=== PATIENT | female | born 1935 | race Caucasian/White ===

== ENCOUNTER 2022-12-04 10:14 | Inpatient (IN) | payer MEDICARE, BC ==
[2022-12-04] MEDS ORDERED: Acetaminophen 325 MG Tab PO PRN (15:57)
[2022-12-04] MEDS ORDERED: Ondansetron 4 MG Tab.DIS PO PRN (15:57)
[2022-12-04] MEDS ORDERED: Polyethylene Glycol 3350 Powder 17 GM Packet PO PRN (15:57)
[2022-12-04] MEDS ORDERED: Fluticasone NASAL Spray 16 GM Bottle NAS PRN (16:02)
[2022-12-04] MEDS: Magnesium Oxide 400 MG Tab PO SCH (19:52)
[2022-12-04] MEDS: Ciprofloxacin 500 MG Tab PO SCH (20:10)
[2022-12-04] MEDS: Donepezil 10 MG Tab PO SCH (20:10)
[2022-12-04] MEDS: Apixaban 5 MG Tab PO SCH (20:11)
[2022-12-04] MEDS: Nystatin Topical Powder 15 GM Bottle TOP SCH (20:11)
[2022-12-05] MEDS: Furosemide 40 MG Tab PO SCH (08:51)
[2022-12-05] MEDS: Magnesium Oxide 400 MG Tab PO SCH ×2 (08:51→18:56)
[2022-12-05] MEDS: Apixaban 5 MG Tab PO SCH ×2 (08:51→20:01)
[2022-12-05] MEDS: Nystatin Topical Powder 15 GM Bottle TOP SCH ×3 (08:51→20:00)
[2022-12-05] MEDS: Tamsulosin 0.4 MG Cap.ER PO SCH (08:51)
[2022-12-05] MEDS: Mirabegron 25 MG Tab Extended Release PO SCH (08:51)
[2022-12-05] MEDS: Ciprofloxacin 500 MG Tab PO SCH ×2 (08:51→20:01)
[2022-12-05] MEDS: Lisinopril 5 MG Tab PO SCH (08:52)
[2022-12-05] MEDS: Metoprolol Succinate 50 MG Tab.ER PO SCH (08:53)
[2022-12-05] MEDS: Cholecalciferol (Vitamin D3) 25 MCG Tab PO SCH (08:53)
[2022-12-05] MEDS: Sertraline 50 MG Tab PO SCH (08:53)
[2022-12-05] MEDS: Sertraline 100 MG Tab PO SCH (08:53)
[2022-12-05] MEDS: Donepezil 10 MG Tab PO SCH (20:01)
[2022-12-06] MEDS: Magnesium Oxide 400 MG Tab PO SCH ×2 (08:22→18:10)
[2022-12-06] MEDS: Furosemide 40 MG Tab PO SCH (09:47)
[2022-12-06] MEDS: Ciprofloxacin 500 MG Tab PO SCH ×2 (09:47→20:08)
[2022-12-06] MEDS: Mirabegron 25 MG Tab Extended Release PO SCH (09:47)
[2022-12-06] MEDS: Apixaban 5 MG Tab PO SCH ×2 (09:47→20:09)
[2022-12-06] MEDS: Tamsulosin 0.4 MG Cap.ER PO SCH (09:47)
[2022-12-06] MEDS: Sertraline 100 MG Tab PO SCH (09:48)
[2022-12-06] MEDS: Nystatin Topical Powder 15 GM Bottle TOP SCH ×3 (09:48→20:08)
[2022-12-06] MEDS: Sertraline 50 MG Tab PO SCH (09:48)
[2022-12-06] MEDS: Cholecalciferol (Vitamin D3) 25 MCG Tab PO SCH (09:49)
[2022-12-06] MEDS: Metoprolol Succinate 50 MG Tab.ER PO SCH (09:57)
[2022-12-06] MEDS: Lisinopril 5 MG Tab PO SCH (09:57)
[2022-12-06] MEDS: Donepezil 10 MG Tab PO SCH (20:08)
[2022-12-07] MEDS: Magnesium Oxide 400 MG Tab PO SCH ×2 (08:29→17:28)
[2022-12-07] MEDS: Cholecalciferol (Vitamin D3) 25 MCG Tab PO SCH (08:29)
[2022-12-07] MEDS: Metoprolol Succinate 50 MG Tab.ER PO SCH (08:29)
[2022-12-07] MEDS: Mirabegron 25 MG Tab Extended Release PO SCH (08:29)
[2022-12-07] MEDS: Tamsulosin 0.4 MG Cap.ER PO SCH (08:30)
[2022-12-07] MEDS: Ciprofloxacin 500 MG Tab PO SCH ×2 (08:30→20:38)
[2022-12-07] MEDS: Sertraline 50 MG Tab PO SCH (08:30)
[2022-12-07] MEDS: Sertraline 100 MG Tab PO SCH (08:30)
[2022-12-07] MEDS: Furosemide 40 MG Tab PO SCH (08:30)
[2022-12-07] MEDS: Lisinopril 5 MG Tab PO SCH (08:30)
[2022-12-07] MEDS: Nystatin Topical Powder 15 GM Bottle TOP SCH ×3 (08:30→20:40)
[2022-12-07] MEDS: Apixaban 5 MG Tab PO SCH ×2 (08:30→20:37)
[2022-12-07] MEDS: Donepezil 10 MG Tab PO SCH (20:37)
[2022-12-08] MEDS: Magnesium Oxide 400 MG Tab PO SCH ×2 (08:47→17:50)
[2022-12-08] MEDS: Nystatin Topical Powder 15 GM Bottle TOP SCH ×3 (08:47→20:44)
[2022-12-08] MEDS: Apixaban 5 MG Tab PO SCH ×2 (08:57→20:27)
[2022-12-08] MEDS: Ciprofloxacin 500 MG Tab PO SCH ×2 (08:57→20:26)
[2022-12-08] MEDS: Cholecalciferol (Vitamin D3) 25 MCG Tab PO SCH (08:58)
[2022-12-08] MEDS: Furosemide 40 MG Tab PO SCH (08:58)
[2022-12-08] MEDS: Tamsulosin 0.4 MG Cap.ER PO SCH (08:58)
[2022-12-08] MEDS: Mirabegron 25 MG Tab Extended Release PO SCH (08:58)
[2022-12-08] MEDS: Sertraline 100 MG Tab PO SCH (08:59)
[2022-12-08] MEDS: Sertraline 50 MG Tab PO SCH (08:59)
[2022-12-08] MEDS: Lisinopril 5 MG Tab PO SCH (09:04)
[2022-12-08] MEDS: Metoprolol Succinate 50 MG Tab.ER PO SCH (09:04)
[2022-12-08] MEDS: Donepezil 10 MG Tab PO SCH (20:26)
[2022-12-09] MEDS: Ciprofloxacin 500 MG Tab PO SCH ×2 (08:32→20:58)
[2022-12-09] MEDS: Tamsulosin 0.4 MG Cap.ER PO SCH (08:32)
[2022-12-09] MEDS: Magnesium Oxide 400 MG Tab PO SCH ×2 (08:32→17:59)
[2022-12-09] MEDS: Apixaban 5 MG Tab PO SCH ×2 (08:32→20:59)
[2022-12-09] MEDS: Furosemide 40 MG Tab PO SCH (08:33)
[2022-12-09] MEDS: Nystatin Topical Powder 15 GM Bottle TOP SCH ×3 (08:33→20:59)
[2022-12-09] MEDS: Mirabegron 25 MG Tab Extended Release PO SCH (08:33)
[2022-12-09] MEDS: Cholecalciferol (Vitamin D3) 25 MCG Tab PO SCH (08:36)
[2022-12-09] MEDS: Sertraline 100 MG Tab PO SCH (08:37)
[2022-12-09] MEDS: Sertraline 50 MG Tab PO SCH (08:37)
[2022-12-09] MEDS: Metoprolol Succinate 50 MG Tab.ER PO SCH (08:38)
[2022-12-09] MEDS: Lisinopril 5 MG Tab PO SCH (08:38)
[2022-12-09] MEDS: Donepezil 10 MG Tab PO SCH (20:58)
[2022-12-10] MEDS: Apixaban 5 MG Tab PO SCH ×2 (08:27→20:44)
[2022-12-10] MEDS: Tamsulosin 0.4 MG Cap.ER PO SCH (08:27)
[2022-12-10] MEDS: Sertraline 100 MG Tab PO SCH (08:27)
[2022-12-10] MEDS: Ciprofloxacin 500 MG Tab PO SCH ×2 (08:27→20:43)
[2022-12-10] MEDS: Magnesium Oxide 400 MG Tab PO SCH ×2 (08:27→17:57)
[2022-12-10] MEDS: Sertraline 50 MG Tab PO SCH (08:27)
[2022-12-10] MEDS: Metoprolol Succinate 50 MG Tab.ER PO SCH (08:28)
[2022-12-10] MEDS: Cholecalciferol (Vitamin D3) 25 MCG Tab PO SCH (08:28)
[2022-12-10] MEDS: Lisinopril 5 MG Tab PO SCH (08:28)
[2022-12-10] MEDS: Mirabegron 25 MG Tab Extended Release PO SCH (08:29)
[2022-12-10] MEDS: Furosemide 40 MG Tab PO SCH (08:29)
[2022-12-10] MEDS: Nystatin Topical Powder 15 GM Bottle TOP SCH ×3 (08:32→20:44)
[2022-12-10] MEDS: Donepezil 10 MG Tab PO SCH (20:43)
[2022-12-11] MEDS: Tamsulosin 0.4 MG Cap.ER PO SCH (08:36)
[2022-12-11] MEDS: Ciprofloxacin 500 MG Tab PO SCH ×2 (08:36→21:44)
[2022-12-11] MEDS: Magnesium Oxide 400 MG Tab PO SCH ×2 (08:36→17:47)
[2022-12-11] MEDS: Apixaban 5 MG Tab PO SCH ×2 (08:36→21:44)
[2022-12-11] MEDS: Furosemide 40 MG Tab PO SCH (08:36)
[2022-12-11] MEDS: Mirabegron 25 MG Tab Extended Release PO SCH (08:37)
[2022-12-11] MEDS: Nystatin Topical Powder 15 GM Bottle TOP SCH ×3 (08:37→21:44)
[2022-12-11] MEDS: Lisinopril 5 MG Tab PO SCH (08:37)
[2022-12-11] MEDS: Metoprolol Succinate 50 MG Tab.ER PO SCH (08:37)
[2022-12-11] MEDS: Sertraline 100 MG Tab PO SCH (08:38)
[2022-12-11] MEDS: Sertraline 50 MG Tab PO SCH (08:38)
[2022-12-11] MEDS: Cholecalciferol (Vitamin D3) 25 MCG Tab PO SCH (08:38)
[2022-12-11] MEDS ORDERED: Pneumococcal Polyvalent-23 Vaccine 0.5 ML SDV IM ONE (11:15)
[2022-12-11] MEDS: Donepezil 10 MG Tab PO SCH (21:44)
[2022-12-12] MEDS: Ciprofloxacin 500 MG Tab PO SCH ×2 (08:23→21:06)
[2022-12-12] MEDS: Magnesium Oxide 400 MG Tab PO SCH ×2 (08:23→17:06)
[2022-12-12] MEDS: Mirabegron 25 MG Tab Extended Release PO SCH (08:24)
[2022-12-12] MEDS: Cholecalciferol (Vitamin D3) 25 MCG Tab PO SCH (08:24)
[2022-12-12] MEDS: Furosemide 40 MG Tab PO SCH (08:24)
[2022-12-12] MEDS: Apixaban 5 MG Tab PO SCH ×2 (08:24→21:10)
[2022-12-12] MEDS: Nystatin Topical Powder 15 GM Bottle TOP SCH ×3 (08:24→21:10)
[2022-12-12] MEDS: Metoprolol Succinate 50 MG Tab.ER PO SCH (08:25)
[2022-12-12] MEDS: Lisinopril 5 MG Tab PO SCH (08:25)
[2022-12-12] MEDS: Sertraline 50 MG Tab PO SCH (08:26)
[2022-12-12] MEDS: Sertraline 100 MG Tab PO SCH (08:26)
[2022-12-12] MEDS: Tamsulosin 0.4 MG Cap.ER PO SCH (08:28)
[2022-12-12] MEDS: Donepezil 10 MG Tab PO SCH (21:06)
[2022-12-13] MEDS: Mirabegron 25 MG Tab Extended Release PO SCH (08:21)
[2022-12-13] MEDS: Magnesium Oxide 400 MG Tab PO SCH ×2 (08:21→17:01)
[2022-12-13] MEDS: Furosemide 40 MG Tab PO SCH (08:21)
[2022-12-13] MEDS: Tamsulosin 0.4 MG Cap.ER PO SCH (08:22)
[2022-12-13] MEDS: Sertraline 100 MG Tab PO SCH (08:22)
[2022-12-13] MEDS: Ciprofloxacin 500 MG Tab PO SCH ×2 (08:22→21:24)
[2022-12-13] MEDS: Cholecalciferol (Vitamin D3) 25 MCG Tab PO SCH (08:22)
[2022-12-13] MEDS: Apixaban 5 MG Tab PO SCH ×2 (08:22→21:25)
[2022-12-13] MEDS: Sertraline 50 MG Tab PO SCH (08:22)
[2022-12-13] MEDS: Nystatin Topical Powder 15 GM Bottle TOP SCH ×3 (08:24→21:25)
[2022-12-13] MEDS: Metoprolol Succinate 50 MG Tab.ER PO SCH (08:25)
[2022-12-13] MEDS: Lisinopril 5 MG Tab PO SCH (08:26)
[2022-12-13] MEDS ORDERED: valACYclovir 1,000 MG Tab PO SCH (09:00)
[2022-12-13 10:24] LABS: EST CRCL DRUG DOSING (CG) 38.5 mL/min
[2022-12-13] MEDS: valACYclovir 1,000 MG Tab PO SCH ×2 (13:07→21:26)
[2022-12-13] MEDS: Donepezil 10 MG Tab PO SCH (21:24)
[2022-12-14] MEDS: Magnesium Oxide 400 MG Tab PO SCH ×2 (08:41→19:24)
[2022-12-14] MEDS: Apixaban 5 MG Tab PO SCH ×2 (08:41→20:10)
[2022-12-14] MEDS: Ciprofloxacin 500 MG Tab PO SCH ×2 (08:41→20:10)
[2022-12-14] MEDS: Tamsulosin 0.4 MG Cap.ER PO SCH (08:42)
[2022-12-14] MEDS: Furosemide 40 MG Tab PO SCH (08:42)
[2022-12-14] MEDS: Mirabegron 25 MG Tab Extended Release PO SCH (08:43)
[2022-12-14] MEDS: Cholecalciferol (Vitamin D3) 25 MCG Tab PO SCH (08:44)
[2022-12-14] MEDS: Sertraline 100 MG Tab PO SCH (08:45)
[2022-12-14] MEDS: Sertraline 50 MG Tab PO SCH (08:45)
[2022-12-14] MEDS: Metoprolol Succinate 50 MG Tab.ER PO SCH (08:46)
[2022-12-14] MEDS: Lisinopril 5 MG Tab PO SCH (08:46)
[2022-12-14] MEDS: Nystatin Topical Powder 15 GM Bottle TOP SCH (09:52)
[2022-12-14] MEDS: valACYclovir 1,000 MG Tab PO SCH (09:52)
[2022-12-14] MEDS: Donepezil 10 MG Tab PO SCH (20:10)
[2022-12-15] MEDS: Magnesium Oxide 400 MG Tab PO SCH ×2 (09:04→17:40)
[2022-12-15] MEDS: Ciprofloxacin 500 MG Tab PO SCH ×2 (09:04→20:00)
[2022-12-15] MEDS: Sertraline 50 MG Tab PO SCH (09:04)
[2022-12-15] MEDS: Apixaban 5 MG Tab PO SCH ×2 (09:04→20:00)
[2022-12-15] MEDS: Tamsulosin 0.4 MG Cap.ER PO SCH (09:04)
[2022-12-15] MEDS: Cholecalciferol (Vitamin D3) 25 MCG Tab PO SCH (09:04)
[2022-12-15] MEDS: Mirabegron 25 MG Tab Extended Release PO SCH (09:04)
[2022-12-15] MEDS: Sertraline 100 MG Tab PO SCH (09:04)
[2022-12-15] MEDS: Furosemide 40 MG Tab PO SCH (09:04)
[2022-12-15] MEDS: Metoprolol Succinate 50 MG Tab.ER PO SCH (09:07)
[2022-12-15] MEDS: Lisinopril 5 MG Tab PO SCH (09:07)
[2022-12-15 10:50] LABS: BASOPHILS PERCENT AUTO 0.6 % (0.2-1.5); EOSINOPHILS ABSOLUTE AUTO 0.5 x10-3/uL (0.0-0.8); EOSINOPHILS PERCENT AUTO 7.2 % (0.6-8.1); HEMATOCRIT 28.7 % (34.2-48.2); HEMOGLOBIN 9.2 g/dL (11.4-15.5); LYMPHOCYTES ABSOLUTE AUTO 0.9 x10-3/uL (1.0-4.4); LYMPHOCYTES PERCENT AUTO 13.2 % (18.4-52.1); MEAN CORPUSCULAR HEMOGLOBIN 27.2 pg (23.9-33.9); MEAN CORPUSCULAR HGB CONC 31.9 g/dL (31.9-34.8); MEAN CORPUSCULAR VOLUME 85.2 fL (76.7-100.5); MEAN PLATELET VOLUME 7.7 fL (7.1-12.4); MONOCYTES ABSOLUTE AUTO 0.4 x10-3/uL (0.3-1.0); MONOCYTES PERCENT AUTO 5.7 % (4.4-15.7); NEUTROPHILS ABSOLUTE AUTO 4.8 x10-3/uL (1.5-6.3); NEUTROPHILS PERCENT AUTO 73.3 % (30.8-76.2); PLATELET COUNT,PLT 318 x10(3)uL (151-488); RED BLOOD CELL COUNT 3.37 x10(6)uL (3.60-5.20); RED CELL DISTRIBUTION WIDTH 15.2 % (12.3-16.5); WHITE BLOOD CELL COUNT,WBC 6.6 x10-3/uL (3.0-10.3)
[2022-12-15 10:52] LABS: BLOOD UREA NITROGEN,BUN 14 mg/dL (7-18); BUN/CREATININE RATIO 12.7 (9-20); CALCIUM 9.4 mg/dL (8.6-10.2); CARBON DIOXIDE,CO2 33 mmol/L (21-32); CHLORIDE,CL 103 mmol/L (100-110); CREATININE 1.1 mg/dL (0.55-1.02); ESTIMATED GFR 49 mL/min (>60); GLUCOSE RANDOM 112 mg/dL (80-116); POTASSIUM,K 3.7 mmol/L (3.5-5.3); SODIUM,NA 143 mmol/L (135-145)
[2022-12-15 10:58] LABS: A/G RATIO 0.5; ALANINE AMINOTRANSFERASE,ALT 29 U/L (12-36); ALBUMIN 2.5 g/dL (3.2-4.6); ALKALINE PHOSPHATASE 134 IU/L (56-112); ASPARTATE AMNIOTRANSFERASE,AST 23 IU/L (5-25); BILIRUBIN TOTAL 0.3 mg/dL (0.1-1.3); PROTEIN TOTAL,TP 7.2 g/dL (6.0-8.0)
[2022-12-15 14:56] LABS: APPEARANCE,URINE SLIGHTLY CLOUDY (CLEAR); BACTERIA,URINE MODERATE (NS); BILIRUBIN,URINE NEGATIVE (NEGATIVE); COLOR,URINE RED (YELLOW); GLUCOSE,URINE NORMAL (NORMAL); KETONES,URINE NEGATIVE (NEGATIVE); LEUKOCYTE ESTERASE,URINE LARGE (NEGATIVE); NITRITE,URINE NEGATIVE (NEGATIVE); OCCULT BLOOD,URINE LARGE (NEGATIVE); PROTEIN,URINE 30 mg/dL (NEGATIVE); RBC,URINE >100 (0-5); SQUAMOUS EPITHELIAL CELLS,UR RARE (NS,R,O); UROBILINOGEN,URINE NORMAL (NEGATIVE); WBC,URINE >100 (0-5)
[2022-12-15] MEDS ORDERED: Ciprofloxacin 500 MG Tab PO SCH (17:00)
[2022-12-15] MEDS: Donepezil 10 MG Tab PO SCH (20:00)
[2022-12-16] MEDS: Magnesium Oxide 400 MG Tab PO SCH ×2 (08:47→18:54)
[2022-12-16] MEDS: Tamsulosin 0.4 MG Cap.ER PO SCH (08:48)
[2022-12-16] MEDS: Ciprofloxacin 500 MG Tab PO SCH ×2 (08:48→20:53)
[2022-12-16] MEDS: Sertraline 50 MG Tab PO SCH (08:49)
[2022-12-16] MEDS: Sertraline 100 MG Tab PO SCH (08:49)
[2022-12-16] MEDS: Cholecalciferol (Vitamin D3) 25 MCG Tab PO SCH (08:50)
[2022-12-16] MEDS: Furosemide 40 MG Tab PO SCH (08:50)
[2022-12-16] MEDS: Mirabegron 25 MG Tab Extended Release PO SCH (08:51)
[2022-12-16] MEDS: Apixaban 5 MG Tab PO SCH ×2 (09:11→20:53)
[2022-12-16] MEDS: Lisinopril 5 MG Tab PO SCH (09:17)
[2022-12-16] MEDS: Metoprolol Succinate 50 MG Tab.ER PO SCH (09:17)
[2022-12-16] MEDS: Donepezil 10 MG Tab PO SCH (20:53)
[2022-12-17 06:32] LABS: BASOPHILS PERCENT AUTO 0.4 % (0.2-1.5); EOSINOPHILS ABSOLUTE AUTO 0.4 x10-3/uL (0.0-0.8); HEMATOCRIT 24.3 % (34.2-48.2); HEMOGLOBIN 7.8 g/dL (11.4-15.5); LYMPHOCYTES ABSOLUTE AUTO 0.8 x10-3/uL (1.0-4.4); LYMPHOCYTES PERCENT AUTO 14.8 % (18.4-52.1); MEAN CORPUSCULAR HEMOGLOBIN 27.3 pg (23.9-33.9); MEAN CORPUSCULAR VOLUME 85.2 fL (76.7-100.5); MEAN PLATELET VOLUME 7.6 fL (7.1-12.4); MONOCYTES ABSOLUTE AUTO 0.4 x10-3/uL (0.3-1.0); MONOCYTES PERCENT AUTO 6.5 % (4.4-15.7); NEUTROPHILS ABSOLUTE AUTO 3.8 x10-3/uL (1.5-6.3); NEUTROPHILS PERCENT AUTO 70.3 % (30.8-76.2); PLATELET COUNT,PLT 234 x10(3)uL (151-488); RED BLOOD CELL COUNT 2.85 x10(6)uL (3.60-5.20); RED CELL DISTRIBUTION WIDTH 15.1 % (12.3-16.5); WHITE BLOOD CELL COUNT,WBC 5.4 x10-3/uL (3.0-10.3)
[2022-12-17 06:38] LABS: BLOOD UREA NITROGEN,BUN 16 mg/dL (7-18); CALCIUM 8.7 mg/dL (8.6-10.2); CARBON DIOXIDE,CO2 31 mmol/L (21-32); CHLORIDE,CL 105 mmol/L (100-110); ESTIMATED GFR 55 mL/min (>60); GLUCOSE RANDOM 92 mg/dL (80-116); POTASSIUM,K 3.5 mmol/L (3.5-5.3); SODIUM,NA 142 mmol/L (135-145)
[2022-12-17] MEDS: Apixaban 5 MG Tab PO SCH (08:32)
[2022-12-17] MEDS: Magnesium Oxide 400 MG Tab PO SCH ×2 (08:45→17:53)
[2022-12-17] MEDS: Cholecalciferol (Vitamin D3) 25 MCG Tab PO SCH (08:46)
[2022-12-17] MEDS: Tamsulosin 0.4 MG Cap.ER PO SCH (08:46)
[2022-12-17] MEDS: Furosemide 40 MG Tab PO SCH (08:46)
[2022-12-17] MEDS: Mirabegron 25 MG Tab Extended Release PO SCH (08:46)
[2022-12-17] MEDS: Ciprofloxacin 500 MG Tab PO SCH ×2 (08:46→20:16)
[2022-12-17] MEDS: Sertraline 50 MG Tab PO SCH (08:47)
[2022-12-17] MEDS: Sertraline 100 MG Tab PO SCH (08:47)
[2022-12-17] MEDS: Metoprolol Succinate 50 MG Tab.ER PO SCH (08:57)
[2022-12-17] MEDS: Lisinopril 5 MG Tab PO SCH (08:57)
[2022-12-17] MEDS: Donepezil 10 MG Tab PO SCH (20:16)
[2022-12-18 06:13] LABS: BASOPHILS PERCENT AUTO 0.5 % (0.2-1.5); EOSINOPHILS ABSOLUTE AUTO 0.5 x10-3/uL (0.0-0.8); EOSINOPHILS PERCENT AUTO 8.3 % (0.6-8.1); HEMATOCRIT 23.5 % (34.2-48.2); HEMOGLOBIN 7.6 g/dL (11.4-15.5); LYMPHOCYTES ABSOLUTE AUTO 0.8 x10-3/uL (1.0-4.4); MEAN CORPUSCULAR HEMOGLOBIN 27.3 pg (23.9-33.9); MEAN CORPUSCULAR HGB CONC 32.5 g/dL (31.9-34.8); MEAN CORPUSCULAR VOLUME 84.1 fL (76.7-100.5); MEAN PLATELET VOLUME 7.3 fL (7.1-12.4); MONOCYTES ABSOLUTE AUTO 0.4 x10-3/uL (0.3-1.0); MONOCYTES PERCENT AUTO 7.3 % (4.4-15.7); NEUTROPHILS ABSOLUTE AUTO 4.1 x10-3/uL (1.5-6.3); NEUTROPHILS PERCENT AUTO 69.9 % (30.8-76.2); PLATELET COUNT,PLT 228 x10(3)uL (151-488); RED BLOOD CELL COUNT 2.79 x10(6)uL (3.60-5.20); WHITE BLOOD CELL COUNT,WBC 5.9 x10-3/uL (3.0-10.3)
[2022-12-18 06:20] LABS: BLOOD UREA NITROGEN,BUN 18 mg/dL (7-18); BUN/CREATININE RATIO 16.4 (9-20); CALCIUM 8.7 mg/dL (8.6-10.2); CARBON DIOXIDE,CO2 31 mmol/L (21-32); CHLORIDE,CL 105 mmol/L (100-110); CREATININE 1.1 mg/dL (0.55-1.02); ESTIMATED GFR 49 mL/min (>60); GLUCOSE RANDOM 92 mg/dL (80-116); POTASSIUM,K 3.7 mmol/L (3.5-5.3); SODIUM,NA 142 mmol/L (135-145)
[2022-12-18] MEDS ORDERED: Sodium Chloride 0.9% 250 ML IV SCH (08:30)
[2022-12-18] MEDS ORDERED: Fluconazole 100 MG Tab PO SCH (09:00)
[2022-12-18] MEDS: Apixaban 5 MG Tab PO SCH (09:15)
[2022-12-18] MEDS: Tamsulosin 0.4 MG Cap.ER PO SCH (09:16)
[2022-12-18] MEDS: Ciprofloxacin 500 MG Tab PO SCH (09:16)
[2022-12-18] MEDS: Furosemide 40 MG Tab PO SCH (09:17)
[2022-12-18] MEDS: Mirabegron 25 MG Tab Extended Release PO SCH (09:17)
[2022-12-18] MEDS: Cholecalciferol (Vitamin D3) 25 MCG Tab PO SCH (09:17)
[2022-12-18] MEDS: Sertraline 50 MG Tab PO SCH (09:18)
[2022-12-18] MEDS: Sertraline 100 MG Tab PO SCH (09:18)
[2022-12-18] MEDS: Metoprolol Succinate 50 MG Tab.ER PO SCH (09:19)
[2022-12-18] MEDS: Magnesium Oxide 400 MG Tab PO SCH ×3 (09:20→17:28)
[2022-12-18] MEDS: Lisinopril 5 MG Tab PO SCH (09:20)
[2022-12-18] MEDS: Donepezil 10 MG Tab PO SCH (21:07)
[2022-12-19] MEDS: Cholecalciferol (Vitamin D3) 25 MCG Tab PO SCH (08:28)
[2022-12-19] MEDS: Mirabegron 25 MG Tab Extended Release PO SCH (08:28)
[2022-12-19] MEDS: Metoprolol Succinate 50 MG Tab.ER PO SCH (08:28)
[2022-12-19] MEDS: Magnesium Oxide 400 MG Tab PO SCH ×2 (08:28→17:38)
[2022-12-19] MEDS: Sertraline 100 MG Tab PO SCH (08:29)
[2022-12-19] MEDS: Sertraline 50 MG Tab PO SCH (08:29)
[2022-12-19] MEDS: Lisinopril 5 MG Tab PO SCH (08:29)
[2022-12-19] MEDS: Tamsulosin 0.4 MG Cap.ER PO SCH (08:29)
[2022-12-19] MEDS: Apixaban 5 MG Tab PO SCH ×2 (08:29→20:29)
[2022-12-19] MEDS: Furosemide 40 MG Tab PO SCH (08:30)
[2022-12-19] MEDS: Donepezil 10 MG Tab PO SCH (20:29)
[2022-12-20] MEDS: Magnesium Oxide 400 MG Tab PO SCH ×2 (09:50→18:07)
[2022-12-20] MEDS: Tamsulosin 0.4 MG Cap.ER PO SCH (09:52)
[2022-12-20] MEDS: Furosemide 40 MG Tab PO SCH (09:52)
[2022-12-20] MEDS: Apixaban 5 MG Tab PO SCH ×2 (09:52→20:36)
[2022-12-20] MEDS: Mirabegron 25 MG Tab Extended Release PO SCH (09:53)
[2022-12-20] MEDS: Lisinopril 5 MG Tab PO SCH (09:53)
[2022-12-20] MEDS: Cholecalciferol (Vitamin D3) 25 MCG Tab PO SCH (09:54)
[2022-12-20] MEDS: Metoprolol Succinate 50 MG Tab.ER PO SCH (09:54)
[2022-12-20] MEDS: Sertraline 50 MG Tab PO SCH (09:54)
[2022-12-20] MEDS: Sertraline 100 MG Tab PO SCH (09:55)
[2022-12-20] MEDS: Donepezil 10 MG Tab PO SCH (20:36)
[2022-12-21] MEDS: Magnesium Oxide 400 MG Tab PO SCH ×2 (08:27→17:37)
[2022-12-21] MEDS: Tamsulosin 0.4 MG Cap.ER PO SCH (08:28)
[2022-12-21] MEDS: Cholecalciferol (Vitamin D3) 25 MCG Tab PO SCH (08:28)
[2022-12-21] MEDS: Mirabegron 25 MG Tab Extended Release PO SCH (08:28)
[2022-12-21] MEDS: Apixaban 5 MG Tab PO SCH ×2 (08:28→20:11)
[2022-12-21] MEDS: Furosemide 40 MG Tab PO SCH (08:28)
[2022-12-21] MEDS: Sertraline 100 MG Tab PO SCH (08:29)
[2022-12-21] MEDS: Sertraline 50 MG Tab PO SCH (08:29)
[2022-12-21] MEDS: Metoprolol Succinate 50 MG Tab.ER PO SCH (08:30)
[2022-12-21] MEDS: Lisinopril 5 MG Tab PO SCH (08:30)
[2022-12-21 09:57] LABS: BASOPHILS PERCENT AUTO 0.5 % (0.2-1.5); EOSINOPHILS ABSOLUTE AUTO 0.4 x10-3/uL (0.0-0.8); EOSINOPHILS PERCENT AUTO 8.2 % (0.6-8.1); HEMATOCRIT 26.7 % (34.2-48.2); HEMOGLOBIN 8.6 g/dL (11.4-15.5); LYMPHOCYTES ABSOLUTE AUTO 0.8 x10-3/uL (1.0-4.4); LYMPHOCYTES PERCENT AUTO 15.6 % (18.4-52.1); MEAN CORPUSCULAR HGB CONC 32.2 g/dL (31.9-34.8); MEAN CORPUSCULAR VOLUME 83.8 fL (76.7-100.5); MEAN PLATELET VOLUME 7.7 fL (7.1-12.4); MONOCYTES ABSOLUTE AUTO 0.4 x10-3/uL (0.3-1.0); MONOCYTES PERCENT AUTO 7.9 % (4.4-15.7); NEUTROPHILS ABSOLUTE AUTO 3.5 x10-3/uL (1.5-6.3); NEUTROPHILS PERCENT AUTO 67.8 % (30.8-76.2); PLATELET COUNT,PLT 229 x10(3)uL (151-488); RED BLOOD CELL COUNT 3.18 x10(6)uL (3.60-5.20); RED CELL DISTRIBUTION WIDTH 15.6 % (12.3-16.5); WHITE BLOOD CELL COUNT,WBC 5.2 x10-3/uL (3.0-10.3)
[2022-12-21] MEDS: Donepezil 10 MG Tab PO SCH (20:10)
[2022-12-22] MEDS: Magnesium Oxide 400 MG Tab PO SCH ×2 (07:58→17:48)
[2022-12-22] MEDS: Sertraline 100 MG Tab PO SCH (07:59)
[2022-12-22] MEDS: Mirabegron 25 MG Tab Extended Release PO SCH (07:59)
[2022-12-22] MEDS: Sertraline 50 MG Tab PO SCH (07:59)
[2022-12-22] MEDS: Cholecalciferol (Vitamin D3) 25 MCG Tab PO SCH (07:59)
[2022-12-22] MEDS: Tamsulosin 0.4 MG Cap.ER PO SCH (08:00)
[2022-12-22] MEDS: Apixaban 5 MG Tab PO SCH ×2 (08:00→21:06)
[2022-12-22] MEDS: Furosemide 40 MG Tab PO SCH (08:00)
[2022-12-22] MEDS: Metoprolol Succinate 50 MG Tab.ER PO SCH (08:01)
[2022-12-22] MEDS: Lisinopril 5 MG Tab PO SCH (08:01)
[2022-12-22] MEDS: Donepezil 10 MG Tab PO SCH (21:06)
[2022-12-23] MEDS: Tamsulosin 0.4 MG Cap.ER PO SCH (08:09)
[2022-12-23] MEDS: Magnesium Oxide 400 MG Tab PO SCH ×2 (08:09→17:32)
[2022-12-23] MEDS: Metoprolol Succinate 50 MG Tab.ER PO SCH (08:09)
[2022-12-23] MEDS: Apixaban 5 MG Tab PO SCH ×2 (08:10→20:49)
[2022-12-23] MEDS: Furosemide 40 MG Tab PO SCH (08:10)
[2022-12-23] MEDS: Sertraline 100 MG Tab PO SCH (08:10)
[2022-12-23] MEDS: Sertraline 50 MG Tab PO SCH (08:10)
[2022-12-23] MEDS: Lisinopril 5 MG Tab PO SCH (08:10)
[2022-12-23] MEDS: Mirabegron 25 MG Tab Extended Release PO SCH (08:10)
[2022-12-23] MEDS: Cholecalciferol (Vitamin D3) 25 MCG Tab PO SCH (08:10)
[2022-12-23] MEDS: Donepezil 10 MG Tab PO SCH (20:49)
[2022-12-24] MEDS: Magnesium Oxide 400 MG Tab PO SCH (08:52)
[2022-12-24] MEDS: Tamsulosin 0.4 MG Cap.ER PO SCH (08:52)
[2022-12-24] MEDS: Furosemide 40 MG Tab PO SCH (08:52)
[2022-12-24] MEDS: Apixaban 5 MG Tab PO SCH (08:52)
[2022-12-24] MEDS: Lisinopril 5 MG Tab PO SCH (08:53)
[2022-12-24] MEDS: Metoprolol Succinate 50 MG Tab.ER PO SCH (08:53)
[2022-12-24] MEDS: Mirabegron 25 MG Tab Extended Release PO SCH (08:53)
[2022-12-24] MEDS: Sertraline 100 MG Tab PO SCH (08:54)
[2022-12-24] MEDS: Sertraline 50 MG Tab PO SCH (08:54)
[2022-12-24] MEDS: Cholecalciferol (Vitamin D3) 25 MCG Tab PO SCH (08:54)
== END 2022-12-24 13:00 | disposition home or self-care (01) | DRG 948 ==
LOC: UNDOADMIN 14:16 → FB.MS 14:16
PROVIDERS: ADMIT Family Medicine; ATTEND Family Medicine
DX: R53.1 Weakness (principal); D64.89 Other specified anemias; G30.9 Alzheimer's disease, unspecified; F02.80 Dementia in other diseases classified elsewhere, unspecified severity, without behavioral disturbance, psychotic disturbance, mood disturbance, and anxiety; I50.9 Heart failure, unspecified; I48.91 Unspecified atrial fibrillation; Z20.822 Contact with and (suspected) exposure to COVID-19; R82.81 Pyuria; Z88.1 Allergy status to other antibiotic agents; Z79.890 Hormone replacement therapy; Z79.899 Other long term (current) drug therapy; Z97.8 Presence of other specified devices
CPT/HCPCS: 36415; 36430; 51798; 80048; 80053; 81001; 82565; 85025; 86850; 86900; 86901; 86920; 86922; 87086; 97110-GO; 97110-GP; 97116-GP; 97129-GO; 97161-GP; 97165-GO; 97530-GO; 97530-GP; 97535-GO; A9270-GY; J7050; P9016; U0002

== ENCOUNTER 2023-04-20 10:30 | Emergency (ER) | payer MEDICARE, BC ==
[2023-04-20] MEDS ORDERED: Sodium Chloride 0.9% 10 ML Syringe FLUSH PRN (10:49)
[2023-04-20 11:17] LABS: BASOPHILS PERCENT AUTO 0.5 % (0.2-1.5); EOSINOPHILS ABSOLUTE AUTO 0.3 x10-3/uL (0.0-0.8); EOSINOPHILS PERCENT AUTO 4.6 % (0.6-8.1); HEMATOCRIT 37.7 % (34.2-48.2); HEMOGLOBIN 12.3 g/dL (11.4-15.5); LYMPHOCYTES PERCENT AUTO 15.1 % (18.4-52.1); MEAN CORPUSCULAR HEMOGLOBIN 27.3 pg (23.9-33.9); MEAN CORPUSCULAR HGB CONC 32.5 g/dL (31.9-34.8); MEAN PLATELET VOLUME 8.4 fL (7.1-12.4); MONOCYTES ABSOLUTE AUTO 0.4 x10-3/uL (0.3-1.0); MONOCYTES PERCENT AUTO 5.9 % (4.4-15.7); NEUTROPHILS PERCENT AUTO 73.9 % (30.8-76.2); PLATELET COUNT,PLT 201 x10(3)uL (151-488); RED BLOOD CELL COUNT 4.49 x10(6)uL (3.60-5.20); RED CELL DISTRIBUTION WIDTH 17.1 % (12.3-16.5); WHITE BLOOD CELL COUNT,WBC 6.7 x10-3/uL (3.0-10.3)
[2023-04-20 11:19] LABS: BLOOD UREA NITROGEN,BUN 25 mg/dL (7-18); BUN/CREATININE RATIO 22.7 (9-20); CALCIUM 8.9 mg/dL (8.6-10.2); CARBON DIOXIDE,CO2 29 mmol/L (21-32); CHLORIDE,CL 105 mmol/L (100-110); CREATININE 1.1 mg/dL (0.55-1.02); ESTIMATED GFR 49 mL/min (>60); GLUCOSE RANDOM 111 mg/dL (80-116); POTASSIUM,K 4.1 mmol/L (3.5-5.3); SODIUM,NA 142 mmol/L (135-145)
[2023-04-20 11:25] LABS: ALANINE AMINOTRANSFERASE,ALT 17 U/L (12-36); ALBUMIN 3.4 g/dL (3.2-4.6); ALKALINE PHOSPHATASE 156 IU/L (56-112); ASPARTATE AMNIOTRANSFERASE,AST 13 IU/L (5-25); BILIRUBIN TOTAL 0.2 mg/dL (0.1-1.3); PROTEIN TOTAL,TP 6.9 g/dL (6.0-8.0)
[2023-04-20 11:29] LABS: BILIRUBIN,URINE NEGATIVE (NEGATIVE); GLUCOSE,URINE NORMAL (NORMAL); KETONES,URINE NEGATIVE (NEGATIVE); LEUKOCYTE ESTERASE,URINE NEGATIVE (NEGATIVE); NITRITE,URINE NEGATIVE (NEGATIVE); OCCULT BLOOD,URINE NEGATIVE (NEGATIVE); PROTEIN,URINE NEGATIVE (NEGATIVE); UROBILINOGEN,URINE NORMAL (NEGATIVE)
[2023-04-20 11:30] LABS: APPEARANCE,URINE SLIGHTLY CLOUDY (CLEAR); BACTERIA,URINE FEW (NS); COLOR,URINE YELLOW (YELLOW); SQUAMOUS EPITHELIAL CELLS,UR FEW (NS,R,O); WBC,URINE 0-5 (0-5)
[2023-04-20 11:30] LABS: INR 1.02 (1.00-1.24); PROTHROMBIN TIME 10.5 sec (9.0-11.1)
== END 2023-04-20 13:00 ==
LOC: FB.ED 10:30
DX: F41.1 Generalized anxiety disorder (principal); I48.92 Unspecified atrial flutter; E03.9 Hypothyroidism, unspecified; Z88.2 Allergy status to sulfonamides; Z88.1 Allergy status to other antibiotic agents; Z79.899 Other long term (current) drug therapy; Z79.01 Long term (current) use of anticoagulants
CPT/HCPCS: 36415; 71045; 80053; 81001; 83880; 84484; 85025; 85610; 85730; 93005; 99285